=== PATIENT | female | born 1950 | race African-American/Black ===

== ENCOUNTER 2018-09-13 13:13 | Emergency (ER) | payer OTHER ==
--- NOTE | 2018-09-13 14:45 | RAD REPORT ---
EXAM DESCRIPTION: CT - Head Brain Wo Cont - 09/13/2018 2:37 pm CLINICAL HISTORY: hypertension;Dizziness Headache, hypertension, drowsiness. COMPARISON: HEAD BRAIN W O CONTRAST dated 08/03/2014 TECHNIQUE: All CT scans are performed using dose optimization technique as appropriate and may inclu de automated exposure control or mA/KV adjustment according to patient size. FINDINGS: No intracranial hemorrhage, hydrocephalus or extra-axial fluid collection.Mild generalized brain atrophy is present with mild periventricular and deep white matter chronic microvascular ische anneliese changes.No areas of brain edema or evidence of midline shift. The paranasal sinuses and mastoids are clear. The calvarium is intact. IMPRESSION: No acute intracranial abnormality.
[2018-09-13 14:58] LABS: Absolute Lymphocytes (CBC) 2.1 K/uL (0.7-4.9); Absolute Monocytes 0.4 K/uL (0.1-1.3); Absolute Neutrophil 2.9 K/uL (1.8-8.0); Basophils % 1.6 % (0-1.3); Eosinophils % 2.3 % (0-4.4); Hematocrit 38.5 % (36.0-45.0); Lymphocytes % 37.3 % (15.3-44.8); MPV 8.3 fL (7.6-11.3); Monocytes % 6.4 % (3.3-12.3); RBC Red Blood Cell Count 4.37 M/uL (3.86-4.86)
--- NOTE | 2018-09-13 15:09 | RAD REPORT ---
EXAM DESCRIPTION: RAD - Chest Single View - 09/13/2018 2:48 pm CLINICAL HISTORY: COUGH Chest pain. COMPARISON: CHEST SINGLE VIEW dated 08/04/2014; CHEST SINGLE VIEW dated 08/03/2014; CHEST PA AND LAT 2 VIEW dated 02/08/2011; CHEST PA AND LAT 2 VIEW dated 01/20/2004 FINDINGS: Portable technique limits examination quality. The lungs are grossly clear. The heart is normal in size. No displaced fractures. IMPRESSION: No acute intrathoracic process suspected.
[2018-09-13] MEDS ORDERED: ONDANSETRON 4 MG/2 ML VIAL ONE (15:13)
[2018-09-13] MEDS ORDERED: NA CHLORIDE 0.9% 500 ML ONE (15:13)
[2018-09-13 15:28] LABS: ALT/SGPT 27 U/L (12-78); AST/SGOT 25 U/L (15-37); Albumin 3.9 g/dL (3.4-5.0); Alkaline Phosphatase 97 U/L (45-117); BUN Blood Urea Nitrogen 15 mg/dL (7-18); Bicarbonate 29 mmol/L (21-32); Bilirubin Direct < 0.1 mg/dL (0-0.2); Bilirubin Total 0.2 mg/dL (0.2-1.0); Glucose Level 85 mg/dL (74-106); Magnesium 2.4 mg/dL (1.8-2.4); NT PRO-BNP 80 pg/mL (<125); Potassium 4.1 mmol/L (3.5-5.1); Protein, Total 8.4 g/dL (6.4-8.2); Sodium Level 140 mmol/L (136-145); Troponin (Emerg Dept Use Only) < 0.02 ng/mL (0.0-0.045)
[2018-09-13 15:46] LABS: Urine RBC NONE SEEN /HPF (NONE SEEN)
[2018-09-13 15:47] LABS: Urine Bacteria NONE SEEN /HPF (<20); Urine Culture Reflex Order NOT NEEDED
[2018-09-13 15:55] LABS: Urine Blood NEGATIVE (NEG); Urine Glucose NEGATIVE (NEG); Urine Protein NEGATIVE (NEG)
--- NOTE | 2018-09-13 16:46 | ER ---
Nurse's Notes [facility] Name: Denisse Duran Age: 68 yrs Sex: Female : 1950 Arrival Date: 09/13/2018 Time: 13:17 Bed 15 Private MD: Demi Porter H Diagnosis: Weakness-general;Dizziness Presentation: 09/13 13:38 Presenting complaint: Patient states: Abdominal pain, left sided facial swelling, hb chills, headache, and dizziness x 5 days. Transition of care: patient was not received from another setting of care. 13:38 Method Of Arrival: Ambulatory hb 14:23 Onset of symptoms was September 13, 2018. Risk Assessment: Do you want to hurt yourself ph or someone else? Patient reports no desire to harm self or others. 14:23 Acuity: VASYL 3 ph 14:23 Initial Sepsis Screen: Does the patient meet any 2 criteria? No. Patient's initial ph sepsis screen is negative. Does the patient have a suspected source of infection? No. Patient's initial sepsis screen is negative. Care prior to arrival: None. Historical: - Allergies: 13:41 No Known Drug Allergies; hb - PSHx: 13:41 Cholecystectomy; Gastric Bypass; hypertension; anemia; hb - Immunization history:: Adult Immunizations up to date. - Social history:: Smoking status: Patient/guardian denies using tobacco. - Ebola Screening: : No symptoms or risks identified at this time. Screenin:00 Abuse screen: Denies threats or abuse. Denies injuries from another. Nutritional ph screening: No deficits noted. Tuberculosis screening: No symptoms or risk factors identified. Fall Risk None identified. Assessment: 14:00 General: Appears in no apparent distress. comfortable, well groomed, Behavior is calm, ph cooperative, appropriate for age, Denies fever, chills. Pain: Complains of pain in epigastric area. Neuro: Level of Consciousness is awake, alert, obeys commands, Oriented to person, place, time, situation, Reports dizziness, headache. Cardiovascular: Capillary refill < 3 seconds in bilateral fingers Patient's skin is warm and dry. Respiratory: Airway is patent Respiratory effort is even, unlabored, Respiratory pattern is regular, symmetrical. GI: Reports upper abdominal pain, nausea, Patient currently denies diarrhea, vomiting. Derm: Skin is intact, is healthy with good turgor, Skin is pink, warm \T\ dry. Musculoskeletal: Circulation, motion, and sensation intact. Range of motion: intact in all extremities. 14:00 EENT: Reports swelling to L side of face, slight swelling noted. ph 15:00 Reassessment: Patient appears in no apparent distress at this time. Patient and/or ph family updated on plan of care and expected duration. Pain level reassessed. Patient is alert, oriented x 3, equal unlabored respirations, skin warm/dry/pink. Pt resting quietly, awaiting lab and CT results. 16:15 Reassessment: Patient appears in no apparent distress at this time. Patient and/or ph family updated on plan of care and expected duration. Pain level reassessed. Patient is alert, oriented x 3, equal unlabored respirations, skin warm/dry/pink. 17:16 Reassessment: Patient appears in no apparent distress at this time. Patient and/or ph family updated on plan of care and expected duration. Pain level reassessed. Patient is alert, oriented x 3, equal unlabored respirations, skin warm/dry/pink. Pt d/c home w/ family. Vital Signs: 13:40 BP 190 / 110; Pulse 89; Resp 16; Temp 97.7; Pulse Ox 100% on R/A; Pain 6/10; hb 15:00 BP 151 / 88 Supine; Pulse 66; Resp 16; Pulse Ox 100% on R/A; dh3 15:02 BP 157 / 94 Sitting; Pulse 68; Resp 17; Pulse Ox 99% on R/A; dh3 15:04 BP 143 / 93 Standing; Pulse 70; Resp 19; Pulse Ox 100% on R/A; dh3 16:00 BP 128 / 79; Pulse 75; Resp 18; Pulse Ox 99% on R/A; ph 17:16 BP 131 / 87; Pulse 72; Resp 18; Temp 97.5; Pulse Ox 100% on R/A; ph ED Course: 13:17 Patient arrived in ED. sb2 13:17 Demi Porter DO is Private Physician. sb2 13:41 Arm band placed on left wrist. hb 13:49 Zaria Rosado, MOMO is Primary Nurse. ph 13:56 Dane Manriquez PA is PHCP. cp 13:56 Jignesh Bustamante MD is Attending Physician. cp 14:00 Patient has correct armband on for positive identification. Placed in gown. Bed in low ph position. Call light in reach. Side rails up X 1. roller skater on. Pulse ox on. NIBP on. Door closed. Warm blanket given. 14:24 Triage completed. ph 14:35 CT completed. Patient tolerated procedure well. Patient moved to CT via wheelchair. [email or web address] Patient moved back from CT. 14:38 CT Head Brain wo Cont In Process Unspecified. EDMS 14:47 X-ray completed. Portable x-ray completed in exam room. Patient tolerated procedure mh1 well. 14:48 XRAY Chest (1 view) In Process Unspecified. EDMS 14:50 Initial lab(s) drawn, by me, sent to lab. Inserted saline lock: 20 gauge in right 3 antecubital area, using aseptic technique. Blood collected. 15:08 Urine collected: clean catch specimen, clear. 3 15:10 EKG done, by metallurgical or materials technician. reviewed by Dane SEGURA. 3 17:14 No provider procedures requiring assistance completed. IV discontinued, intact, ph bleeding controlled, No redness/swelling at site. Pressure dressing applied. Administered Medications: 15:10 Drug: NS 0.9% 500 ml Route: IV; Rate: bolus; Site: right antecubital; ph 16:00 Follow up: Response: No adverse reaction; IV Status: Completed infusion ph 15:11 Drug: Zofran 4 mg Route: IVP; Site: right antecubital; ph 17:17 Follow up: Response: No adverse reaction ph Outcome: 16:45 Discharge ordered by . cp 17:15 Discharged to home ambulatory, with family. ph 17:15 Condition: good 17:15 Discharge instructions given to patient, Instructed on discharge instructions, follow up and referral plans. Demonstrated understanding of instructions, follow-up care. 17:25 Patient left the ED. Signatures: Dispatcher [employer] EDMS Idalia Skinner 1 Jennifer Nelson RN RN Zaria Rosado RN RN ph Dane Manriquez PA PA cp Kimberly Medeiros RN RN Jennifer Franklin 3 Tamanna Molina 2 Angelia Syed 3 Patria Weaver [id number] Corrections: (The following items were deleted from the chart) 16:15 14:00 Neuro: Level of Consciousness is awake, alert, obeys commands, Oriented to ph person, place, time, situation, Reports dizziness, ph
--- NOTE | 2018-09-13 16:46 | EDPHYS ---
Physician Documentation [facility] Name: Denisse Duran Age: 68 yrs Sex: Female : 1950 Arrival Date: 09/13/2018 Time: 13:17 Bed 15 Private MD: Demi Porter H ED Physician Jignesh Bustamante HPI: 09/13 14:10 This 68 yrs old Black Female presents to ER via Ambulatory with complaints of Facial cp Swelling, Abdominal Pain, Dizziness. 14:10 The patient presents with dizziness. cp 14:10 Onset: The symptoms/episode began/occurred 5 day(s) ago. cp 14:10 Context: just prior to the episode the patient experienced no apparent symptoms. cp Associated signs and symptoms: Pertinent positives: headache, nausea, left facial swelling, Pertinent negatives: blurred vision, chest pain, focal weakness, shortness of breath, syncope. Patient's baseline: Neuro: alert and fully oriented, Motor: left-sided facial droop, Ambulation: walks without assistance, Speech: normal, The patient has a previous history of bells palsy . Historical: - Allergies: 13:41 No Known Drug Allergies; hb - PSHx: 13:41 Cholecystectomy; Gastric Bypass; hypertension; anemia; hb - Immunization history:: Adult Immunizations up to date. - Social history:: Smoking status: Patient/guardian denies using tobacco. - Ebola Screening: : No symptoms or risks identified at this time. ROS: 14:15 Constitutional: Positive for chills, Negative for body aches, fever, poor PO intake. cp 14:15 Eyes: Negative for injury, pain, redness, and discharge. cp 14:15 Cardiovascular: Negative for chest pain, palpitations. cp 14:15 Respiratory: Positive for cough, with no reported sputum, Negative for shortness of breath, wheezing. 14:15 Abdomen/GI: Positive for nausea, Negative for vomiting, diarrhea, constipation, black/tarry stool, rectal bleeding. 14:15 ENT: Negative for drainage from ear(s), ear pain, sore throat, difficulty swallowing, cp difficulty handling secretions. 14:15 : Negative for urinary symptoms. 14:15 MS/extremity: Negative for injury or acute deformity, decreased range of motion. 14:15 Skin: Negative for rash. 14:15 Neuro: Positive for dizziness, general weakness, Negative for altered mental status, headache, syncope, near syncope, visual changes. 14:15 All other systems are negative. Exam: 14:22 Constitutional: The patient appears in no acute distress, alert, awake, cp non-diaphoretic, non-toxic, well developed, well nourished, obese. 14:22 Head/face: Exam is negative for acute changes, Sinus tenderness, is not appreciated. cp 14:22 Eyes: Periorbital structures: appear normal, Pupils: equal, round, and reactive to light and accomodation, Extraocular movements: intact throughout, Conjunctiva: normal, no exudate, no injection, Sclera: no appreciated abnormality, Lids and lashes: appear normal, bilaterally. 14:22 ENT: External ear(s): are unremarkable, Ear canal(s): are normal, clear, TM's: dullness, bilaterally, Nose: is normal, Mouth: Lips: moist, Oral mucosa: pink and intact, moist, Gums: normal with healthy appearance, Posterior pharynx: Airway: no evidence of obstruction, patent, Tonsils: are normal in appearance, Uvula: midline, swelling, is not appreciated, erythema, is not appreciated, exudate, is not appreciated, Voice: is normal. 14:22 Neck: ROM/movement: is normal, is supple, without pain, no range of motions limitations, no meningismus, no nuchal rigidity. 14:22 Chest/axilla: Inspection: normal, Palpation: is normal, no crepitus, no tenderness. 14:22 Cardiovascular: Rate: normal, Rhythm: regular, Edema: ankle edema, that is mild, JVD: is not appreciated. 14:22 Respiratory: the patient does not display signs of respiratory distress, Respirations: normal, no use of accessory muscles, no retractions, no splinting, no tachypnea, labored breathing, is not present, Breath sounds: are clear throughout, no decreased breath sounds, no stridor, no wheezing. 14:22 Abdomen/GI: Inspection: abdomen appears normal, Bowel sounds: active, all quadrants, Palpation: abdomen is soft and non-tender, in all quadrants. 14:22 Back: pain, is absent, ROM is normal. 14:22 Musculoskeletal/extremity: Exam is negative for decreased range of motion, deformity, injury. 14:22 Skin: cellulitis, is not appreciated, no rash present. 14:22 Neuro: Orientation: to person, place \T\ time. Mentation: is normal, Cerebellar function: is grossly normal, Motor: moves all fours, strength is normal, Sensation: is normal. 14:55 ECG was reviewed by the Attending Physician. cp Vital Signs: 13:40 BP 190 / 110; Pulse 89; Resp 16; Temp 97.7; Pulse Ox 100% on R/A; Pain 6/10; hb 15:00 BP 151 / 88 Supine; Pulse 66; Resp 16; Pulse Ox 100% on R/A; dh3 15:02 BP 157 / 94 Sitting; Pulse 68; Resp 17; Pulse Ox 99% on R/A; dh3 15:04 BP 143 / 93 Standing; Pulse 70; Resp 19; Pulse Ox 100% on R/A; dh3 16:00 BP 128 / 79; Pulse 75; Resp 18; Pulse Ox 99% on R/A; ph 17:16 BP 131 / 87; Pulse 72; Resp 18; Temp 97.5; Pulse Ox 100% on R/A; ph MDM: 13:56 Patient medically screened. cp 14:00 Differential diagnosis: cardiac arrhythmia, CVA, generalized weakness, GI bleed, cp hypovolemia, idiopathic dizziness, TIA, vertigo. 14:30 Differential diagnosis: URI, pneumonia UTI, electrolyte abnormality, dehydration. cp 16:45 Data reviewed: vital signs, nurses notes, lab test result(s), EKG, radiologic studies, cp CT scan, plain films. 16:45 Test interpretation: by ED physician or midlevel provider: ECG, plain radiologic cp studies. Counseling: I had a detailed discussion with the patient and/or guardian regarding: the historical points, exam findings, and any diagnostic results supporting the discharge/admit diagnosis, lab results, radiology results, to return to the emergency department if symptoms worsen or persist or if there are any questions or concerns that arise at home. Response to treatment: the patient's symptoms have mildly improved after treatment, and as a result, I will discharge patient. 09/13 14:10 Order name: Basic Metabolic Panel; Complete Time: 15:55 cp 09/13 15:55 Interpretation: Normal except: CRE 1.40; GFR 46. cp 09/13 14:10 Order name: CBC with Diff; Complete Time: 15:55 cp 09/13 15:55 Interpretation: Normal except: RDW 15.5; BASO% 1.6. 09/13 14:10 Order name: LFT's; Complete Time: 15:55 09/13 15:57 Interpretation: Normal except: TP 8.4; GLOB 4.5; A/G 0.9. 09/13 14:10 Order name: Magnesium; Complete Time: 15:55 09/13 15:58 Interpretation: MG 2.4; Reviewed. 09/13 14:10 Order name: NT PRO-BNP; Complete Time: 15:55 09/13 14:10 Order name: PT-INR; Complete Time: 15:55 09/13 14:10 Order name: CT Head Brain wo Cont; Complete Time: 15:55 09/13 14:10 Order name: XRAY Chest (1 view); Complete Time: 15:55 09/13 15:57 Interpretation: Report review. 09/13 14:10 Order name: Troponin (emerg Dept Use Only); Complete Time: 15:55 09/13 15:58 Interpretation: TROPED < 0.02; Reviewed. 09/13 14:10 Order name: EKG; Complete Time: 14:11 09/13 14:10 Order name: Urine Microscopic Only; Complete Time: 15:55 09/13 15:23 Order name: Urine Dipstick--Ancillary (enter results); Complete Time: 15:57 em1 09/13 15:58 Interpretation: Reviewed. 09/13 14:10 Order name: Orthostatics; Complete Time: 15:11 09/13 14:10 Order name: Cardiac monitoring; Complete Time: 14:52 09/13 14:10 Order name: EKG - Nurse/Tech; Complete Time: 14:52 09/13 14:10 Order name: IV Saline Lock; Complete Time: 14:52 09/13 14:10 Order name: Labs collected and sent; Complete Time: 14:52 09/13 14:10 Order name: O2 Per Protocol; Complete Time: 14:52 09/13 14:10 Order name: O2 Sat Monitoring; Complete Time: 14:52 09/13 14:10 Order name: Urine Dipstick-Ancillary (obtain specimen); Complete Time: 15:11 cp EC:55 Rate is 64 beats/min. Rhythm is regular. NE interval is prolonged at 258 msec. QRS cp interval is normal. QT interval is normal. Interpreted by me. Reviewed by me. Administered Medications: 15:10 Drug: NS 0.9% 500 ml Route: IV; Rate: bolus; Site: right antecubital; ph 16:00 Follow up: Response: No adverse reaction; IV Status: Completed infusion ph 15:11 Drug: Zofran 4 mg Route: IVP; Site: right antecubital; ph 17:17 Follow up: Response: No adverse reaction ph Disposition: 17:45 Chart complete. cp 17:55 Co-signature as Attending Physician, Jignesh Bustamante MD. rn Disposition: 09/13/18 16:45 Discharged to Home. Impression: Weakness - general, Dizziness. - Condition is Stable. - Discharge Instructions: Dizziness, Weakness. - Medication Reconciliation Form, Thank You Letter, Antibiotic Education, Prescription Opioid Use form. - Follow up: Private Physician; When: 2 - 3 days; Reason: Recheck today's complaints. - Problem is new. - Symptoms have improved. Signatures: Dispatcher [employer] EDMS Jignesh Bustamante MD MD rn Smirch, Shelby, RN RN ss Zaria Rosado RN RN ph Dane Manriquez PA PA Kimberly Medeiros RN RN Corrections: (The following items were deleted from the chart) 17:25 16:45 09/13/2018 16:45 Discharged to Home. Impression: Weakness - general; Dizziness. ss Condition is Stable. Forms are Medication Reconciliation Form, Thank You Letter, Antibiotic Education, Prescription Opioid Use. Follow up: Private Physician; When: 2 - 3 days; Reason: Recheck today's complaints. Problem is new. Symptoms have improved. cp
[2018-09-13 17:46] VITALS: BP 131/87; TEMP 97.5; O2SAT 100
--- NOTE | 2018-09-13 23:13 | EKG ---
Test Date: 2018-09-13 Test Time: 14:45:18 Air Analysis Technician: LESLI MEASUREMENT RESULTS: Intervals: Rate: 64 WI: 258 QRSD: 86 QT: 440 QTc: 453 [place]: P: 50 WI: 258 QRS: 51 T: 21 INTERPRETIVE STATEMENTS: Sinus rhythm with 1st degree AV block Otherwise normal ECG Compared to ECG 08/04/2014 06:04:25 Sinus bradycardia no longer present Electronically Signed On 09-13-18 23:12:10 HEDIS COORDINATOR by King Bajwa
== END 2018-09-13 17:25 | disposition home or self-care (01) ==
LOC: ER 13:13
DX: R53.1 Weakness (principal); R42 Dizziness and giddiness; I44.0 Atrioventricular block, first degree; Z98.84 Bariatric surgery status
CPT/HCPCS: 36415; 70450; 71045; 80048; 80076; 83735; 83880; 84484; 85025; 85610; 93005; 96361; 96374; 99285; J2405; 81003; 81015

== ENCOUNTER 2018-11-13 09:10 | Emergency (ER) | payer OTHER ==
--- OUTSIDE RECORDS SUMMARY | 2018-11-13 09:12 | XMS REPORT | Clinical Summary ---
:1950 Author Organization [facility] Address [address] [place] [address] Care Team Providers Name Role Phone Unavailable Primary Care Provider Unavailable Allergies No Known Allergies Medications Medication Sig Dispensed Refills Start Date End Date Status acetaminophen-codein TAKE 1-2 0 11/01/2017 Active e (TYLENOL WITH TABLET(S) BY CODEINE #3) 300-30 MOUTH EVERY 4 mg per tablet HOURS NEEDED FOR PAIN amoxicillin (AMOXIL) TAKE 2 CAPSULES 0 11/01/2017 Active 500 MG capsule BY MOUTH 1 HOUR PRIOR TO SURGERY, THEN 1 CAPSULE EVERY 8 HOURS calcitriol TAKE 1 CAPSULE 6 11/11/2017 Active (ROCALTROL) 0.25 MCG BY MOUTH capsule TUESDAY,TUESDAY & TUESDAY HEMOCYTE-PLUS 106 mg Take 1 capsule 3 11/10/2017 Active iron- 1 mg capsule by mouth daily. allopurinol Take 300 mg by 0 Active (ZYLOPRIM) 300 MG mouth daily. tablet amLODIPine (NORVASC) Take 5 mg by 0 Active 5 mg tablet mouth daily. [id number] Take by mouth. 0 Active p-jeremy-bor (CALTRATE 600+D PLUS MINERALS) 600 mg calcium- 800 unit-50 mg tablet doxycycline Take 1 capsule 60 capsule 1 12/01/2017 12/31/2017 (VIBRAMYCIN) 50 MG (50 mg total) by capsule mouth 2 (two) times a day for 30 days. 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 Last Filed Vital Signs Not on file Plan of Treatment Health Maintenance Due Date Last Done Comments BREAST CANCER SCREENING 2002 COLON CANCER SCREENING 2002 SHINGLES VACCINES (#1) 2002 65+ PNEUMOCOCCAL VACCINE (1 of 2 - PCV13) 2017 PNEUMOCOCCAL POLYSACCHARIDE VACCINE AGE 65 AND OVER 2017 INFLUENZA VACCINE 03/29/2018 Results Not on fileafter 11/12/2017 Insurance Payer Benefit Plan / Group Subscriber ID Type Phone Address AETNA MEDICARE AETNA MEDICARE HMO/PPO [facility] xxxxxxxx HMO Advance Directives Patient has advance care planning documents on file. For more information, please contact:Koby Weeks [facility] [place] [address]
--- NOTE | 2018-11-13 11:21 | RAD REPORT ---
EXAM DESCRIPTION: RAD - Shoulder Right 2 View - 11/13/2018 10:32 am CLINICAL HISTORY: PAIN COMPARISON: Chest Single View dated 09/13/2018; CHEST SINGLE VIEW dated 08/03/2014 FINDINGS: Mild AC joint and glenohumeral joint arthritic changes are present. Thin lucency is seen i n the region of the greater tuberosity of the humeral head. This is most likely a normal variant rath er than nondisplaced fracture, however correlation with clinical point tenderness in this region is a dvised.
--- NOTE | 2018-11-13 11:39 | EDPHYS ---
Physician Documentation [facility] Name: Denisse Duran Age: 68 yrs Sex: Female : 1950 Arrival Date: 11/13/2018 Time: 09:12 Bed 11 Private MD: Demi Porter H ED Physician Dane Busby HPI: 11/13 10:09 This 68 yrs old Black Female presents to ER via Ambulatory with complaints of Shoulder ching Pain. 10:09 The patient or guardian complains of decreased range of motion, pain. right shoulder. ching Context: The problem was sustained at home. Onset: The symptoms/episode began/occurred 2 day(s) ago. Modifying factors: the symptoms are alleviated by remaining still, The symptoms are aggravated by movement. Associated signs and symptoms: The patient has no apparent associated signs or symptoms. Severity of symptoms: At their worst the symptoms were moderate, in the emergency department the symptoms are unchanged. Treatment prior to arrival includes: no previous treatment. The patient has not experienced similar symptoms in the past. Historical: - Allergies: : No Known Allergies; hb - PSHx: : Cholecystectomy; Gastric Bypass; hypertension; anemia; hb - Immunization history:: Adult Immunizations up to date. - Social history:: Smoking status: Patient/guardian denies using tobacco. - Ebola Screening: : No symptoms or risks identified at this time. - Family history:: not pertinent. ROS: 10:09 Constitutional: Negative for fever, chills, and weight loss, Eyes: Negative for injury, ching pain, redness, and discharge, ENT: Negative for injury, pain, and discharge, Neck: Negative for injury, pain, and swelling, Cardiovascular: Negative for chest pain, palpitations, and edema, Respiratory: Negative for shortness of breath, cough, wheezing, and pleuritic chest pain, Abdomen/GI: Negative for abdominal pain, nausea, vomiting, diarrhea, and constipation, Back: Negative for injury and pain, : Negative for injury, bleeding, discharge, and swelling, Skin: Negative for injury, rash, and discoloration, Neuro: Negative for headache, weakness, numbness, tingling, and seizure, Psych: Negative for depression, anxiety, suicide ideation, homicidal ideation, and hallucinations, Allergy/Immunology: Negative for hives, rash, and allergies, Endocrine: Negative for neck swelling, polydipsia, polyuria, polyphagia, and marked weight changes, Hematologic/Lymphatic: Negative for swollen nodes, abnormal bleeding, and unusual bruising. 10:09 MS/extremity: Positive for decreased range of motion, pain, tenderness, of the anterior aspect of right shoulder and posterior aspect of right shoulder. Exam: 10:09 Constitutional: This is a well developed, well nourished patient who is awake, alert, ching and in no acute distress. Head/Face: Normocephalic, atraumatic. Eyes: Pupils equal round and reactive to light, extra-ocular motions intact. Lids and lashes normal. Conjunctiva and sclera are non-icteric and not injected. Cornea within normal limits. Periorbital areas with no swelling, redness, or edema. ENT: Nares patent. No nasal discharge, no septal abnormalities noted. Tympanic membranes are normal and external auditory canals are clear. Oropharynx with no redness, swelling, or masses, exudates, or evidence of obstruction, uvula midline. Mucous membranes moist. Neck: Trachea midline, no thyromegaly or masses palpated, and no cervical lymphadenopathy. Supple, full range of motion without nuchal rigidity, or vertebral point tenderness. No Meningismus. Chest/axilla: Normal chest wall appearance and motion. Nontender with no deformity. No lesions are appreciated. Cardiovascular: Regular rate and rhythm with a normal S1 and S2. No gallops, murmurs, or rubs. Normal PMI, no JVD. No pulse deficits. Respiratory: Lungs have equal breath sounds bilaterally, clear to auscultation and percussion. No rales, rhonchi or wheezes noted. No increased work of breathing, no retractions or nasal flaring. Abdomen/GI: Soft, non-tender, with normal bowel sounds. No distension or tympany. No guarding or rebound. No evidence of tenderness throughout. Back: No spinal tenderness. No costovertebral tenderness. Full range of motion. Skin: Warm, dry with normal turgor. Normal color with no rashes, no lesions, and no evidence of cellulitis. Neuro: Awake and alert, GCS 15, oriented to person, place, time, and situation. Cranial nerves II-XII grossly intact. Motor strength 5/5 in all extremities. Sensory grossly intact. Cerebellar exam normal. Normal gait. Psych: Awake, alert, with orientation to person, place and time. Behavior, mood, and affect are within normal limits. 10:09 Musculoskeletal/extremity: Extremities: noted in the anterior aspect of right shoulder and posterior aspect of right shoulder: decreased ROM, ROM: limited active range of motion, limited passive range of motion, Circulation is intact in all extremities. Sensation intact. DVT Exam: No signs of deep vein thrombosis. no swelling, negative Homans' sign noted on exam, no appreciated bluish discoloration, no erythema, no increased warmth, pain, tenderness. Vital Signs: 09:26 BP 167 / 95; Pulse 67; Resp 20; Temp 97.2; Pulse Ox 100% on R/A; Pain 4/10; hb MDM: 09:37 Patient medically screened. [facility] 10:09 Data reviewed: vital signs, nurses notes, radiologic studies, plain films. [facility] 11/13 10:08 Order name: Shoulder Right (2 View) XRAY; Complete Time: 11:37 [facility] 11/13 10:09 Order name: Sling; Complete Time: 10:13 [facility] 11/13 10:09 Order name: Ice pack; Complete Time: 10:45 [facility] 11/13 11:37 Order name: EKG; Complete Time: 11:37 [facility] 11/13 11:37 Order name: EKG - Nurse/Tech; Complete Time: 11:47 [facility] Administered Medications: 10:11 Not Given (Patient Refused): Motrin 600 mg PO once iw 10:11 Not Given (Patient Refused): [place] 10 mg-325 mg 1 tabs PO once iw Disposition: 11/13/18 11:38 Discharged to Home. Impression: Pain in right shoulder. - Condition is Stable. - Discharge Instructions: Joint Pain, Musculoskeletal Pain, Shoulder Pain, Shoulder Pain, Tkwn-ej-Vena. - Prescriptions for Tylenol- Codeine #3 300-30 mg Oral Tablet - take 2 tablet by ORAL route every 6 hours As needed; 30 tablet. Motrin IB 200 mg Oral Tablet - take 2 tablet by ORAL route every 6 hours As needed as needed with food; 40 tablet. Zofran 4 mg Oral Tablet - take 1 tablet by ORAL route every 12 hours As needed; 20 tablet. - Medication Reconciliation Form, Thank You Letter, Antibiotic Education, Prescription Opioid Use form. - Follow up: Demi Porter DO; When: 2 - 3 days; Reason: Recheck today's complaints, Continuance of care, Re-evaluation by your physician. Follow up: Shakir Mcrae MD; When: 2 - 3 days; Reason: Recheck today's complaints, Continuance of care, Re-evaluation by your physician. - Problem is new. - Symptoms have improved. Signatures: Dispatcher [employer] EDMS Dane Busby MD MD cha Williams, Irene, RN RN Kimberly Medeiros RN RN Corrections: (The following items were deleted from the chart) 11:54 11:38 11/13/2018 11:38 Discharged to Home. Impression: Pain in right shoulder. iw Condition is Stable. Forms are Medication Reconciliation Form, Thank You Letter, Antibiotic Education, Prescription Opioid Use. Follow up: Demi Porter; When: 2 - 3 days; Reason: Recheck today's complaints, Continuance of care, Re-evaluation by your physician. Follow up: Shakir Mcrae; When: 2 - 3 days; Reason: Recheck today's complaints, Continuance of care, Re-evaluation by your physician. Problem is new. Symptoms have improved. ching
--- NOTE | 2018-11-13 11:39 | ER ---
Nurse's Notes [facility] Name: Denisse Duran Age: 68 yrs Sex: Female : 1950 Arrival Date: 11/13/2018 Time: 09:12 Bed 11 Private MD: Demi Porter H Diagnosis: Pain in right shoulder Presentation: 11/13 09:25 Presenting complaint: Right shoulder pain after lifting television 2 days ago. hb Transition of care: patient was not received from another setting of care. Onset of symptoms was November 11, 2018. Risk Assessment: Do you want to hurt yourself or someone else? Patient reports no desire to harm self or others. Care prior to arrival: None. 09:25 Method Of Arrival: Ambulatory hb 09:25 Acuity: VASYL 4 hb 10:20 Initial Sepsis Screen: Does the patient meet any 2 criteria? No. Patient's initial iw sepsis screen is negative. Does the patient have a suspected source of infection? No. Patient's initial sepsis screen is negative. Historical: - Allergies: : No Known Allergies; hb - PSHx: :27 Cholecystectomy; Gastric Bypass; hypertension; anemia; hb - Immunization history:: Adult Immunizations up to date. - Social history:: Smoking status: Patient/guardian denies using tobacco. - Ebola Screening: : No symptoms or risks identified at this time. - Family history:: not pertinent. Screenin:20 Abuse screen: Denies threats or abuse. Denies injuries from another. Nutritional iw screening: No deficits noted. Tuberculosis screening: No symptoms or risk factors identified. Fall Risk None identified. Assessment: 10:20 General: Appears in no apparent distress. Behavior is calm, cooperative. Pain: iw Complains of pain in right arm and right shoulder. Neuro: Level of Consciousness is awake, alert, obeys commands, Oriented to person, place, time, situation, Moves all extremities. Full function. Cardiovascular: Patient's skin is warm and dry. Respiratory: Respiratory effort is even, unlabored, Respiratory pattern is regular, symmetrical. Derm: Skin is intact, is healthy with good turgor. Musculoskeletal: Range of motion: intact in all extremities, Reports pain in right shoulder. Vital Signs: : BP 167 / 95; Pulse 67; Resp 20; Temp 97.2; Pulse Ox 100% on R/A; Pain 4/10; hb ED Course: 09:12 Patient arrived in ED. as 09:12 Demi Porter DO is Private Physician. as 09:26 Triage completed. hb 09:26 Arm band placed on left wrist. hb 09:27 Karely Chance, RN is Primary Nurse. iw 09:36 Dane Busby MD is Attending Physician. ching 10:13 Sling applied to right arm. jb1 10:20 Patient has correct armband on for positive identification. iw 10:32 Shoulder Right (2 View) XRAY In Process Unspecified. EDMS 11:37 Demi Porter DO is Referral Physician. ching 11:37 Shakir Mcrae MD is Referral Physician. ching 11:53 No provider procedures requiring assistance completed. Patient did not have IV access iw during this emergency room visit. Administered Medications: 10:11 Not Given (Patient Refused): Motrin 600 mg PO once iw 10:11 Not Given (Patient Refused): [place] 10 mg-325 mg 1 tabs PO once iw Outcome: 11:38 Discharge ordered by . ching 11:53 Discharged to home ambulatory, with family. iw 11:53 Condition: good 11:53 Discharge instructions given to patient, family, Instructed on discharge instructions, follow up and referral plans. medication usage, Demonstrated understanding of instructions, follow-up care, medications, Prescriptions given X 3. 11:54 Patient left the ED. iw Signatures: Dispatcher [employer] EDMS Ozzy Terry [email or web address] Dane Busby MD MD cha Martinez, Amelia as Karely Chance, RN RN iw Kimberly Medeiros RN RN
[2018-11-13 11:58] VITALS: BP 167/95; TEMP 97.2; O2SAT 100
== END 2018-11-13 11:54 | disposition home or self-care (01) ==
LOC: ER 09:10
DX: M25.511 Pain in right shoulder (principal); I10 Essential (primary) hypertension
CPT/HCPCS: 93005; 99283

== ENCOUNTER 2024-05-14 23:15 | Emergency (ER) | payer OTHER ==
[2024-05-15 00:07] LABS: Absolute Basophils 0.1 K/uL (0-0.5); Absolute Eosinophils 0.2 K/uL (0-0.5); Absolute Monocytes 0.6 K/uL (0.1-1.3); Absolute Neutrophil 2.8 K/uL (1.8-8.0); Basophils % 1.2 % (0-1.3); Eosinophils % 4.3 % (0-4.4); Hematocrit 35.2 % (36.0-45.0); Hemoglobin 11.6 g/dL (12.0-15.0); Lymphocytes % 34.8 % (15.3-44.8); MCH 28.9 pg (27.0-35.0); MCV 87.5 fL (80-100); MPV 8.6 fL (7.6-11.3); Monocytes % 10.4 % (3.3-12.3); Neutrophils % 49.3 % (41.7-73.7); Platelets 187 thou/uL (152-406); RBC Red Blood Cell Count 4.02 M/uL (3.86-4.86); Red Cell Distribution Width 14.9 % (12.1-15.2)
[2024-05-15 00:21] LABS: Anion Gap 9.1 mEq/L (5.0-15.0); Magnesium 2.2 mg/dL (1.6-2.4); Potassium 4.1 mEq/L (3.5-5.1); Troponin High Sensitivity 7.8 pg/mL (<58.9)
[2024-05-15] MEDS ORDERED: cloNIDine HCL 0.1 MG TAB ONE (00:55)
[2024-05-15 00:59] LABS: SARS-CoV-2 Antigen CONTROL BLUE LINE VIS/BG OK; SARS-CoV-2 Antigen Rapid Res Negative (Negative)
--- NOTE | 2024-05-15 01:19 | EDPHYS ---
Physician Documentation [facility] Name: Denisse Duran Age: 74 yrs Sex: Female : 1950 Arrival Date: 05/14/2024 Time: 23:15 Bed 6 Private MD: ED Physician Fernando Hartley HPI: 05/14 23:34 This 74 yrs old Black Female presents to ER via Unassigned with complaints of high kb blood pressure, cough, SOB. 05/15 00:48 Pt is a 74 year old female who presents for cough, congestion, shortness of breath and kb high blood pressure. States she has had the cough and congestion for 3 days, shortness of breath and high blood pressure today. Denies fever, chills, bodyaches, chest pain. . Historical: - Allergies: 05/14 23:38 No Known Allergies; bm8 - Home Meds: 23:38 losartan 50 mg oral tablet 1 tab 2 times per day [Active]; bm8 - PMHx: 23:38 Hypertensive disorder; bm8 - PSHx: 23:38 abd surgery; Cholecystectomy; tubal ligation; bm8 - Immunization history:: Adult Immunizations up to date. - Infectious Disease History:: Denies. - Social history:: Smoking status: Patient denies any tobacco usage or history of. ROS: 05/15 00:50 Constitutional: As per HPI kb Exam: 05/14 23:34 Constitutional: This is a well developed, well nourished patient who is awake, alert, kb and in no acute distress. Head/Face: Normocephalic, atraumatic. ENT: Moist Mucous membranes Cardiovascular: Regular rate Respiratory: Respirations even and unlabored. No increased work of breathing. Talking in full sentences Abdomen/GI: Soft, non-tender. No distention Skin: Warm, dry with normal turgor. Normal color. MS/ Extremity: Pulses equal, no cyanosis. Neurovascular intact. Full, normal range of motion. Neuro: Awake and alert, GCS 15, oriented to person, place, time, and situation. Moves all extremities. Normal gait. ECG was reviewed by the Attending Physician. Vital Signs: 23:18 BP 190 / 108; Pulse 80; Resp 18; Temp 98.5; Pulse Ox 96% on R/A; Weight 102.06 kg; bm8 Height 5 ft. 4 in. ; Pain 0/10; 05/15 01:09 BP 180 / 98; Pulse 69; Resp 18; Temp 98.5; Pulse Ox 100% on R/A; Pain 0/10; bm8 01:39 BP 157 / 100; Pulse 64; Resp 19; Temp 98.5; Pulse Ox 100% ; Pain 0/10; bm8 05/14 23:18 Body Mass Index 38.62 (102.06 kg, 162.56 cm) bm8 05/14 23:18 Pain Scale: Adult bm8 05/15 01:09 Pain Scale: Adult bm8 01:39 Pain Scale: Adult bm8 Art Coma Score: 05/14 23:55 Eye Response: spontaneous(4). Motor Response: obeys commands(6). Verbal Response: bm8 oriented(5). Total: 15. 05/15 01:09 Eye Response: spontaneous(4). Motor Response: obeys commands(6). Verbal Response: bm8 oriented(5). Total: 15. 01:39 Eye Response: spontaneous(4). Motor Response: obeys commands(6). Verbal Response: bm8 oriented(5). Total: 15. MDM: 05/14 23:18 Patient medically screened. kb 05/15 01:16 Differential diagnosis: Anxiety Reaction Bronchitis pneumonia, pulmonary edema, covid, kb flu, hypertension. Data reviewed: vital signs, nurses notes. Historians other than the Patient: EMS: [facility]. Counseling: I had a detailed discussion with the patient and/or guardian regarding the historical points, exam findings, and any diagnostic results supporting the discharge/admit diagnosis, lab results, radiology results, the need for outpatient follow up, a family practitioner, to return to the emergency department if symptoms worsen or persist or if there are any questions or concerns that arise at home. ED course: Pt feeling better, BP improved, resp even and unlabored, lungs clear bilaterally, oxygen saturation 100% on room air. Educated to continue prescribed HTN medication, keep BP log and follow up with PCP. Verbal understanding received. . 05/14 23:18 Order name: Basic Metabolic Panel; Complete Time: 00:21 kb 05/14 23:18 Order name: CBC with Diff; Complete Time: 00:15 kb 09/16 23:18 Order name: Magnesium; Complete Time: 00:21 kb 05/14 23:18 Order name: NT PRO-BNP; Complete Time: 00:21 kb 05/14 23:18 Order name: Troponin HS; Complete Time: 00:21 kb 05/14 23:18 Order name: Flu; Complete Time: 01:05 kb 05/14 23:18 Order name: SARS-COV-2 Antigen Rapid; Complete Time: 00:59 kb 05/14 23:18 Order name: XRAY Chest (1 view) kb 05/14 23:18 Order name: Cardiac monitoring; Complete Time: 23:42 kb 05/14 23:18 Order name: EKG - Nurse/Tech; Complete Time: 23:42 kb 05/14 23:18 Order name: IV Saline Lock; Complete Time: 23:42 kb 05/14 23:18 Order name: Labs collected and sent; Complete Time: 23:42 kb 05/14 23:18 Order name: O2 Per Protocol; Complete Time: 23:42 kb 05/14 23:18 Order name: O2 Sat Monitoring; Complete Time: 23:42 kb EC/16 23:34 Rate is 71 beats/min. Rhythm is regular. QRS [place] is Normal. [place] interval is prolonged kb at 246 msec. QRS interval is normal at 86 msec. QT interval is normal at 452 msec. Administered Medications: 05/15 00:49 CANCELLED (Physician Discretion): [id number] mg IVP once kb 01:09 Drug: cloNIDine PO 0.1 mg PO once Route: PO; bm8 01:40 Follow up: Response: No adverse reaction bm8 Disposition: 22:59 Co-signature as Attending Physician, Fernando Hartley MD I agree with the assessment sp4 and plan of care. I reviewed the patient's care provided by the Advanced Practice Provider and agree with the diagnosis and treatment plan. Disposition Summary: 05/15/24 01:18 Discharge Ordered Notes: Location: Home kb Condition: Stable kb Diagnosis - Cough kb - Essential (primary) hypertension kb Followup: kb - With: Emergency Department - When: As needed - Reason: Worsening of condition Followup: kb - With: Private Physician - When: 2 - 3 days - Reason: Recheck today's complaints, Continuance of care, Re-evaluation by your physician Discharge Instructions: - Discharge Summary Sheet kb - Hypertension, Adult, Yjle-lu-Aave kb - Cough, Adult, [id number] kb Forms: - Medication Reconciliation Form kb - Antibiotic Education kb - Prescription Opioid Use kb - Patient Portal Instructions kb - Leadership Thank You Letter kb Signatures: Dispatcher [employer] EDMS Maggie Fisher, PUBLIC RELATIONS-C PUBLIC RELATIONS-Ckb Fernando Hartley MD MD sp4 Javier Tolentino, RN RN bm8 Corrections: (The following items were deleted from the chart) 05/14 23:19 23:19 BASIC METABOLIC PANEL+C.LAB.BRZ ordered. EDMS EDMS 23:19 23:19 CBC+H.LAB.BRZ ordered. EDMS EDMS 23:19 23:19 MAGNESIUM+C.LAB.BRZ ordered. EDMS EDMS 23:19 23:19 PROBNP+C.LAB.BRZ ordered. EDMS EDMS 23:19 23:19 Troponin High Sensitivity+C.LAB.BRZ ordered. EDMS EDMS 23:19 23:19 Influenza Screen (A \T\ B)+BA.LAB.BRZ ordered. EDMS EDMS 23:19 23:19 SARS-COV-2 Antigen Rapid+I.LAB.BRZ ordered. EDMS EDMS 23:19 23:19 Chest Single View+RAD.RAD.BRZ ordered. EDMS EDMS 05/15 00:49 00:49 hydrALAZINE IVP 10 mg IVP once ordered. kb kb
--- NOTE | 2024-05-15 01:19 | ER ---
Nurse's Notes [facility] Name: Denisse Duran Age: 74 yrs Sex: Female : 1950 Arrival Date: 05/14/2024 Time: 23:15 Bed 6 Private MD: Diagnosis: Cough;Essential (primary) hypertension Presentation: 05/14 23:18 Chief complaint: Patient states: I have been having cough with shortness of breath and bm8 my blood pressure was really high today. Coronavirus screen: cough unrelated to allergies. Ebola Screen: Patient negative for fever greater than or equal to 101.5 degrees Fahrenheit, and additional compatible Ebola Virus Disease symptoms Patient denies exposure to infectious person. Patient denies travel to an Ebola-affected area in the 21 days before illness onset. No symptoms or risks identified at this time. Initial Sepsis Screen: Does the patient meet any 2 criteria? No. Patient's initial sepsis screen is negative. Does the patient have a suspected source of infection? No. Patient's initial sepsis screen is negative. Risk Assessment: Do you want to hurt yourself or someone else? Patient reports no desire to harm self or others. Onset of symptoms was May 14, 2024 at 12:00. 23:18 Method Of Arrival: EMS: [facility] bm8 23:18 Acuity: VASYL 3 bm8 23:42 Care prior to arrival: Medication(s) given: labetolol 10 mg IVP IV initiated. 18 GA, in bm8 the right antecubital area. Triage Assessment: 23:38 General: Appears in no apparent distress. comfortable, Behavior is calm, cooperative, bm8 appropriate for age. Pain: Denies pain. EENT: No deficits noted. Neuro: No deficits noted. Level of Consciousness is awake, alert, obeys commands, Oriented to person, place, time, situation, Appropriate for age. Cardiovascular: No deficits noted. Reports high blood pressure Heart tones S1 S2 present Capillary refill < 3 seconds Patient's skin is warm and dry. Respiratory: Reports shortness of breath cough that is Airway is patent Trachea midline Respiratory effort is even, unlabored, Respiratory pattern is regular, symmetrical, Breath sounds are clear bilaterally. Onset: The symptoms/episode began/occurred gradually, the patient has mild shortness of breath. GI: No deficits noted. No signs and/or symptoms were reported involving the gastrointestinal system. : No deficits noted. No signs and/or symptoms were reported regarding the genitourinary system. Derm: No deficits noted. No signs and/or symptoms reported regarding the dermatologic system. Musculoskeletal: No deficits noted. No signs and/or symptoms reported regarding the musculoskeletal system. Historical: - Allergies: 23:38 No Known Allergies; bm8 - Home Meds: 23:38 losartan 50 mg oral tablet 1 tab 2 times per day [Active]; bm8 - PMHx: 23:38 Hypertensive disorder; bm8 - PSHx: 23:38 abd surgery; Cholecystectomy; tubal ligation; bm8 - Immunization history:: Adult Immunizations up to date. - Infectious Disease History:: Denies. - Social history:: Smoking status: Patient denies any tobacco usage or history of. Screenin:55 [facility] ED Fall Risk Assessment (Adult) History of falling in the last 3 months, bm8 including since admission No falls in past 3 months (0 pts) Confusion or Disorientation No (0 pts) Intoxicated or Sedated No (0 pts) Impaired Gait No (0 pts) Mobility Assist Device Used No (0 pt) Altered Elimination No (0 pt) Score/Fall Risk Level 0 - 2 = Low Risk Oriented to surroundings, Maintained a safe environment, Educated pt \T\ family on fall prevention, incl call for assistance when getting out of bed, Assessed \T\ reinforced patient's understanding of fall precautions, Hourly rounding (assess needs \T\ fall precautionary measures) done, Used ambulatory aids as needed (educated on \T\ assisted with), Used gait belt as appropriate. Abuse screen: Denies threats or abuse. Nutritional screening: No deficits noted. Tuberculosis screening: No symptoms or risk factors identified. Assessment: 05/15 01:09 Reassessment: Patient appears in no apparent distress at this time. Patient and/or bm8 family updated on plan of care and expected duration. Pain level reassessed. Patient is alert, oriented x 3, equal unlabored respirations, skin warm/dry/pink. Patient denies pain at this time. Patient states feeling better. Patient states symptoms have improved. General: Appears in no apparent distress. comfortable, Behavior is calm, cooperative, appropriate for age. Pain: Denies pain. Neuro: No deficits noted. Level of Consciousness is awake, alert, obeys commands, Oriented to person, place, time, situation, Appropriate for age. Cardiovascular: Reports shortness of breath, Denies chest pain, Heart tones S1 S2 Capillary refill < 3 seconds in bilateral fingers toes Patient's skin is warm and dry. Rhythm is sinus rhythm with 1st degree heart block. Respiratory: Airway is patent Trachea midline Respiratory effort is even, unlabored, Respiratory pattern is regular, symmetrical, Breath sounds are clear bilaterally. GI: No signs and/or symptoms were reported involving the gastrointestinal system. : No signs and/or symptoms were reported regarding the genitourinary system. EENT: No signs and/or symptoms were reported regarding the EENT system. Derm: No signs and/or symptoms reported regarding the dermatologic system. Musculoskeletal: No signs and/or symptoms reported regarding the musculoskeletal system. 01:39 Reassessment: Patient appears in no apparent distress at this time. No changes from 8 previously documented assessment. Patient and/or family updated on plan of care and expected duration. Pain level reassessed. Patient is alert, oriented x 3, equal unlabored respirations, skin warm/dry/pink. Patient denies pain at this time. Patient states feeling better. Patient states symptoms have improved. Vital Signs: 05/14 23:18 BP 190 / 108; Pulse 80; Resp 18; Temp 98.5; Pulse Ox 96% on R/A; Weight 102.06 kg; bm8 Height 5 ft. 4 in. ; Pain 0/10; 05/15 01:09 BP 180 / 98; Pulse 69; Resp 18; Temp 98.5; Pulse Ox 100% on R/A; Pain 0/10; bm8 01:39 BP 157 / 100; Pulse 64; Resp 19; Temp 98.5; Pulse Ox 100% ; Pain 0/10; bm8 05/14 23:18 Body Mass Index 38.62 (102.06 kg, 162.56 cm) bm8 05/14 23:18 Pain Scale: Adult bm8 05/15 01:09 Pain Scale: Adult bm8 01:39 Pain Scale: Adult bm8 [place] Coma Score: 05/14 23:55 Eye Response: spontaneous(4). Motor Response: obeys commands(6). Verbal Response: bm8 oriented(5). Total: 15. 05/15 01:09 Eye Response: spontaneous(4). Motor Response: obeys commands(6). Verbal Response: bm8 oriented(5). Total: 15. 01:39 Eye Response: spontaneous(4). Motor Response: obeys commands(6). Verbal Response: bm8 oriented(5). Total: 15. ED Course: 05/14 23:18 Patient arrived in ED. rv1 23:18 Maggie Fisher, [place] is [facility]. kb 23:18 Fernando Hartley MD is Attending Physician. kb 23:35 Javier Tolentino, MOMO is Primary Nurse. bm8 23:38 Triage completed. bm8 23:38 Arm band placed on right wrist. bm8 23:54 Initial lab(s) drawn, by me, sent to lab. EKG done, by ED staff, reviewed by Maggie CANTU COVID swab sent to lab. Flu and/or RSV swab sent to lab. Maintain EMS IV. Dressing intact. Good blood return noted. Site clean \T\ dry. Gauge \T\ site: 18g RAC. Flushed with 10 mL NS. 23:55 Patient has correct armband on for positive identification. Placed in gown. Bed in low bm8 position. Call light in reach. Side rails up X2. Adult w/ patient. Client placed on continuous cardiac and pulse oximetry monitoring. NIBP monitoring applied. driver material handler on. Pulse ox on. NIBP on. Door closed. Noise minimized. Visitors limited. Warm blanket given. Pillow given. Verbal reassurance given. Head of bed elevated. 23:55 No provider procedures requiring assistance completed. bm8 05/15 00:22 XRAY Chest (1 view) In Process Unspecified. EDMS 01:09 Patient maintains SpO2 saturation greater than 95% on room air. bm8 01:39 Provided Education on: post er care. bm8 01:39 IV discontinued, intact, bleeding controlled, No redness/swelling at site. Pressure bm8 dressing applied. Administered Medications: 00:49 CANCELLED (Physician Discretion): mg IVP once kb 01:09 Drug: cloNIDine PO 0.1 mg PO once Route: PO; bm8 01:40 Follow up: Response: No adverse reaction bm8 Medication: 05/14 23:55 VIS not applicable for this client. bm8 Outcome: 05/15 01:18 Discharge ordered by . anabell 01:39 Discharged to home via wheelchair, bm8 01:39 Condition: stable 01:39 Discharge instructions given to patient, family, Instructed on discharge instructions, follow up and referral plans. no drinking with medication, no driving heavy equipment, medication usage, safety practices, Demonstrated understanding of instructions, follow-up care, medications, 01:40 Patient left the ED. bm8 Signatures: Dispatcher [employer] EDMaggie Santillan, GENNY-Tavo ROYAL-Leonora Hutchins rv1 Javier Tolentino, RN RN bm8
[2024-05-15 02:09] VITALS: TEMP 98.5
[2024-05-15 02:11] VITALS: O2SAT 100
[2024-05-15 02:12] VITALS: BP 157/100
--- NOTE | 2024-05-15 08:51 | RAD REPORT ---
EXAM: XR Chest, 1 View CLINICAL HISTORY: The patient is 74 years old and is Female; Congestion; cough TECHNIQUE: Frontal view of the chest. COMPARISON: No relevant prior studies available. FINDINGS: LUNGS: Unremarkable. No consolidation. PLEURAL SPACE: Unremarkable. No pneumothorax. HEART: Unremarkable. No cardiomegaly. MEDIASTINUM: Unremarkable. Normal mediastinal contour. BONES/JOINTS: Unremarkable. No acute fracture. UPPER ABDOMEN: Unremarkable as visualized. IMPRESSION: No acute cardiopulmonary process. Electronically signed by: Claudette Calderon MD 05/15/2024 12:43 AM CDT RP Due to temporary technical issues with PACS / Fluency reporting system, reports are being signed by the in-house radiologist without review as a courtesy to ensure prompt reporting. The interpreting radiologist is fully responsible for the content of the report. Transcribed Date/Time: 05/15/2024 8:51 AM
--- NOTE | 2024-05-15 16:56 | EKG ---
Test Date: 2024-05-14 Test Time: 23:32:24 [place] Watchman: TRISTIAN MEASUREMENT RESULTS: Intervals: Rate: 71 FL: 246 QRSD: 86 QT: 416 QTc: 452 [place]: P: 53 FL: 246 QRS: -15 T: 26 INTERPRETIVE STATEMENTS: Sinus rhythm with 1st degree AV block Otherwise normal ECG Compared to ECG 02/26/2024 14:07:46 No significant changes Electronically Signed On 05-15-24 16:54:41 CDT by John Aldrich
== END 2024-05-15 01:40 | disposition home or self-care (01) ==
LOC: ER 23:15
DX: R05.9 Cough, unspecified (principal); I10 Essential (primary) hypertension; Z11.52 Encounter for screening for COVID-19
CPT/HCPCS: 36415; 71045; 80048; 83735; 83880; 84484; 85025; 87804; 87811; 93005; 99285